=== PATIENT | female | born 1955 | race Caucasian/White ===

== ENCOUNTER → 2020-01-23 15:44 | Outpatient (CLI) | payer OTHER, SELFPAY ==
[2020-01-23 15:50] LABS: Adenovirus,PCR Not Detected (NotDetected); Coronavirus 229E Not Detected (NotDetected); Coronavirus NL63 Not Detected (NotDetected); Coronavirus OC43 Not Detected (NotDetected); Coronovirus HKU1,PCR Not Detected (NotDetected); Human Metapneumovirus Not Detected (NotDetected); Influenza A, PCR Not Detected (NotDetected); Influenza AH1, 2009 Not Detected (NotDetected); Influenza AH1, PCR Not Detected (NotDetected); Rhinovirus/Enterovirus Not Detected (NotDetected)
[2020-01-23 15:51] LABS: Bordetella Pertussis Not Detected (NotDetected); Chlamydophila Pneumoniae, PCR Not Detected (NotDetected); Influenza AH3,PCR Not Detected (NotDetected); Influenza B, PCR Not Detected (NotDetected); Mycoplasma Pneumoniae, PCR Not Detected (NotDetected); Parainfluenza 1, PCR Not Detected (NotDetected); Parainfluenza 2, PCR Not Detected (NotDetected); Parainfluenza 3, PCR Not Detected (NotDetected); Parainfluenza 4, PCR Not Detected (NotDetected); Respiratory Syncytial Virus Not Detected (NotDetected)
== END ==
PROVIDERS: Visit Provider Family Medicine
DX: R68.89 Other general symptoms and signs (principal)
CPT/HCPCS: 87275; 87276; 87486; 87581; 87633; 87798

== ENCOUNTER 2024-04-17 11:40 | Emergency (ER) | payer MEDICARE, SELFPAY ==
[2024-04-17] VITALS (9 sets, daily range): BP systolic 141–191; BP diastolic 64–91; PULSE 58–70; RESP 18; TEMP 36.6; O2SAT 90–93; BMI 22.8
--- NOTE | 2024-04-17 12:15 | CT_ITS ---
FINAL REPORT TECHNIQUE: After the administration of intravenous contrast, axial images were obtained through the abdomen and pelvis by computed tomography. The study was performed with techniques to keep radiation dose as low as reasonably achievable, (ALARA). Individual dose reduction techniques using automated exposure control or adjustment of mA and/or kV according to the patient's size were employed. CLINICAL HISTORY: Acute right lower quadrant abdominal pain, nausea and vomiting. COMPARISON: None. FINDINGS: Abdomen: The lung bases are clear. The liver has a nodular peripheral margin, consistent with cirrhosis. There are multiple gallstones in the gallbladder. There may be mild gallbladder wall thickening. The spleen is at the upper limits of normal in size. Pancreas and adrenal glands appear unremarkable. There is moderate left hydronephrosis. There is left hydroureter to the level of an obstructing stone. The aorta is normal in caliber. There is no free fluid or adenopathy. Pelvis: The appendix is not identified. Uterus is present and lies midline. Obstructing stone is at the UVJ and measures 4 mm. The urinary bladder is incompletely distended. There is no free fluid or adenopathy. IMPRESSION: 4 mm obstructing stone at the level of the left UVJ resulting in moderate left hydronephrosis and hydroureter. Gallstones in the gallbladder. Cirrhosis. Reviewed, Interpreted and Dictated by Joe Min MD Transcribed by Bianca Colon PA-C Authenticated and [facility]
--- NOTE | 2024-04-17 12:16 | ED_ITS ---
Discharge Plan Disposition Patient Disposition: Home, Self-Care Condition: Good Prescriptions Prescriptions: New oxycodone 5 mg tablet 5 mg PO Q8H PRN (Reason: pain) Qty: 12 0RF ondansetron HCl 4 mg tablet 4 mg PO Q8H PRN (Reason: nausea and vomiting) 4 Days Qty: 12 0RF tamsulosin [Flomax] 0.4 mg capsule 0.4 mg PO DAILY Qty: 10 0RF ketorolac 10 mg tablet 10 mg PO Q8H PRN (Reason: pain) Qty: 14 0RF Referrals Follow up/Referrals: Cadence Turner MD [Primary Care Provider] - See instructions Jw Martin [Referring] - See instructions Activity Restrictions/Add. Instructions Additional Instructions/Restrictions: You were evaluated in the emergency department today and diagnosed with a left kidney stone. Please use a strainer to strain your urine to see if you are able to catch the stone. Please follow-up outpatient with Dr. Jw Martin on 04/19 @ 230pm. Make sure that you drink plenty of water. technical support internship your prescriptions. Take them as needed. Be careful with taking oxycodone, as it can be sedating. Do not drive or operate heavy machinery while taking narcotic pain medication. You may also take Tylenol every 4-6 hours as needed for pain. Return to the emergency department for new or worsening symptoms, such as fever greater than 100.4 ?F, significant worsening in pain, intractable nausea and vomiting, or other concerns. Clinical Impressions Clinical Impression: Calculus of left ureter Instructions Patient Instructions: DI for Kidney Stones Discharge ED Provider: Abraham Cuellar General Adult HPI General Chief complaint: Abdominal Pain Stated complaint: vomiting, abd pain Time Seen by Provider: 04/17/24 11:58 Mode of Arrival: Ambulatory Source of Information: Patient and Spouse Limitations: No Limitations Description of Symptoms (Recalled from ER Triage Doc. by RN): Patient complaint of right lower abdomen pain that began last night and then this morning she began to have some vomiting. History of Present Illness HPI narrative: This patient is a 68-year-old female who denies significant past medical history presenting to the emergency department for evaluation with concern for lower abdominal pain, nausea, and vomiting. Her reports that she threw up many times this morning. The pain started last night in her right lower abdomen, but the vomiting started this morning. No fevers, changes in bowel movements, chest pain, shortness of breath, urinary symptoms, or other concerns. Patient denies any prior abdominal surgeries or issues. She does note that she has had some intermittent diarrhea and constipation in the past. Related Data Previous Rx's Medication Instructions Recorded ketorolac 10 mg tablet 10 mg PO Q8H PRN pain #14 tabs 04/17/24 ondansetron HCl 4 mg tablet 4 mg PO Q8H PRN nausea and 04/17/24 vomiting 4 days #12 tabs oxycodone 5 mg tablet 5 mg PO Q8H PRN pain #12 tabs 04/17/24 tamsulosin 0.4 mg capsule (Flomax) 0.4 mg PO DAILY #10 caps 04/17/24 Allergies Allergy/AdvReac Type Severity Reaction Status Date / Time No Known Allergies Allergy Verified 04/17/24 12:01 [facility] Disclaimer: The information contained in this section may have been updated after the patient was seen, as this information can be updated by other users. Social History Smoking Status: Never smoker alcohol intake: never current occupational status: retired Travel in the last 8 weeks: None ROS Obtained: Yes All systems reviewed & no additional complaints except as documented Physical Exam General General appearance: alert and in no apparent distress Head Head exam: atraumatic and normocephalic Eye Eye exam: Present normal appearance, PERRL and EOMI ENT ENT exam: Present normal exam, normal oropharynx, mucous membranes moist and normal external ear exam Neck Neck exam: Present normal inspection, full ROM and trachea midline; Absent tenderness Chest Chest inspection: Present normal inspection and symmetric chest wall rise; Absent tenderness Respiratory Respiratory exam: Present normal lung sounds bilaterally; Absent respiratory distress, wheezes, stridor or accessory muscle use Cardiovascular Cardiovascular exam: Present regular rate and normal rhythm Abdominal Exam Abdominal exam: Present soft, tenderness (Right lower quadrant) and normal bowel sounds; Absent distention, guarding, rebound or rigidity Extremities Exam Extremities exam: Present normal inspection, full ROM and normal capillary refill; Absent tenderness or edema Back Exam Back exam: Present normal inspection and full ROM; Absent tenderness Neurological Exam Neurological exam: Present alert, oriented X3, CN II-XII intact and normal gait; Absent motor sensory deficit Psychiatric Psychiatric exam: Present normal affect and normal mood Skin Skin exam: Present warm and dry Medical Decision Making Medical Records Medical records reviewed: Yes I reviewed the patient's medical records. Rebel Inquiry Pt receiving controlled substance: Yes Rebel was queried for this patient: Yes Risks and benefits of using a controlled substance: were discussed with pt by me Vital Signs: 04/17/24 11:42 04/17/24 12:00 04/17/24 12:30 Temperature 97.9 F Temperature Source Oral Pulse Rate 67 61 Pulse Rate [Radial] 68 Respiratory Rate 18 Blood Pressure 156/72 H 152/64 H Blood Pressure [Right Arm] 162/74 H Blood Pressure Mean Blood Pressure Mean [Right Arm] 103 Blood Pressure Source [Right Arm] Automatic Cuff Blood Pressure Position [Right Arm] Sitting 02 Sat by Pulse Oximetry 92 L 92 L 92 L Oxygen Delivery Method Room Air 04/17/24 13:30 04/17/24 14:00 04/17/24 14:30 Temperature Temperature Source Pulse Rate 70 69 61 Pulse Rate [Radial] Respiratory Rate Blood Pressure 191/91 H 189/84 H 157/77 H Blood Pressure [Right Arm] Blood Pressure Mean Blood Pressure Mean [Right Arm] Blood Pressure Source [Right Arm] Blood Pressure Position [Right Arm] 02 Sat by Pulse Oximetry 91 L 93 L 90 L Oxygen Delivery Method 04/17/24 15:00 04/17/24 15:30 04/17/24 15:35 Temperature 97.9 F Temperature Source Oral Pulse Rate 58 L 59 L 59 L Pulse Rate [Radial] Respiratory Rate 18 18 Blood Pressure 141/68 H 142/67 H 142/67 H Blood Pressure [Right Arm] Blood Pressure Mean 83 Blood Pressure Mean [Right Arm] Blood Pressure Source [Right Arm] Blood Pressure Position [Right Arm] 02 Sat by Pulse Oximetry 93 L 90 L Oxygen Delivery Method Room Air Lab Data Lab results reviewed: Yes I reviewed the patient's lab results. Lab Results 04/17/24 11:48: Urine Color Yellow, Urine Appearance Cloudy, Urine pH 6.0, Ur Specific Nettie >= 1.030, Urine Protein 1+, Urine Glucose (UA) Negative, Urine Ketones Negative, Urine Blood 3+, Urine Nitrate Negative, Urine Bilirubin Negative, Urine Urobilinogen 1.0, Ur Leukocyte Esterase Negative, Urine RBC 50- 100, Urine WBC 3-5, Ur Squamous Epith Cells 5-10, Urine Bacteria Trace, Urine Mucus Trace 04/17/24 12:10: WBC 7.9, RBC 4.32, Hgb 14.9, Hct 44.8, MCV 103.6 H, MCH 34.3 H, MCHC 33.2, RDW 13.5, Plt Count 147, MPV 8.5, Neut % (Auto) 77.3, Lymph % (Auto) 16.6, Aiken % (Auto) 5.1, Eos % (Auto) 0.4, Baso % (Auto) 0.7, Neut # (Auto) 6.1, Lymph # (Auto) 1.3, Aiken # (Auto) 0.4, Eos # (Auto) 0.0, Baso # (Auto) 0.1, Sodium 141, Potassium 3.7, Chloride 103, Carbon Dioxide 26, Anion Gap 15.7 H, BUN 13, Creatinine 1.00, Estimated Creat Clear 56, Estimated GFR 55 L, Est GFR ( Amer) 66, Glucose 139 H, Calcium 9.2, Total Bilirubin 1.2, AST 48 H, ALT 40, Alkaline Phosphatase 107, Total Protein 8.3 H, Albumin 4.3, Globulin 4.0 H, Albumin/Globulin Ratio 1.1, Lipase 39 04/17/24 12:10 04/17/24 12:10 Orders (Tests/Meds): ED MEDICATIONS Discontinued Medications Generic Name Dose Route Start Last Admin Trade Name Freq PRN Reason Stop Dose Admin Acetaminophen 1,000 mg 04/17/24 13:18 04/17/24 13:22 Acetaminophen 1,000mg/100ml Vial IV 04/17/24 13:19 1,000 mg ONCE ONE Administration Lactated Ringer's 1,000 mls @ 999 mls/hr 04/17/24 12:15 04/17/24 12:28 Lactated Ringer's 1000 Ml Bag IV 04/17/24 13:15 999 mls/hr .Q1H1M ONE Administration Iopamidol 75 ml 04/17/24 13:07 04/17/24 13:07 Iopamidol-370 (76%);100ml Bottle IV 04/17/24 13:08 75 ml ONCE ONE Administration Ketorolac Tromethamine 15 mg 04/17/24 13:18 04/17/24 13:22 Ketorolac 30mg/Ml Vial IV 04/17/24 13:19 15 mg ONCE ONE Administration Morphine Sulfate 4 mg 04/17/24 14:06 04/17/24 14:24 Morphine 4mg/Ml Syringe IV 04/17/24 14:07 4 mg ONCE ONE Administration Ondansetron HCl 4 mg 04/17/24 12:15 04/17/24 12:28 Ondansetron 4mg/2ml Vial IV 04/17/24 12:16 4 mg ONCE ONE Administration Sodium Chloride 10 ml 04/17/24 13:07 04/17/24 13:07 Sodium Chloride 0.9% 10ml Syr (Rad Only) IV 05/17/24 13:06 10 ml NEEDED PRN Administration Maintain IV Site Tamsulosin HCl 0.4 mg 04/17/24 14:42 04/17/24 14:52 Tamsulosin 0.4mg Capsule PO 04/17/24 14:43 0.4 mg ONCE ONE Administration ORDERS Category Date Time Status CT abdomen pelvis w con Stat Cat Scan 04/17/24 12:15 Taken CBC w/Auto Diff [Complete Blood Count Auto Diff] Stat Lab 04/17/24 12:10 Completed Comprehensive Metabolic Panel Stat Lab 04/17/24 12:10 Completed Lipase Stat Lab 04/17/24 12:10 Completed Urinalysis and Microscopic Stat Lab 04/17/24 11:48 Completed Medical Decision Narrative: In summary, this patient is a 68-year-old female presenting to the Emergency Department for evaluation of lower abdominal pain, nausea, and vomiting. Differential diagnoses considered include but are not limited to appendicitis, pyelonephritis, cystitis, ureterolithiasis, colitis, gastroenteritis. Ruling out the most morbid conditions drove assessment. On exam, the patient is resting comfortably in bed in no acute distress. She has right lower quadrant tenderness but no rebound or guarding. Workup included CBC, CMP, lipase, urinalysis, and CT abdomen pelvis with IV contrast. She was given a bolus of IV fluids as well as IV Zofran for symptomatic improvement. I independently interpreted CT scan prior to the radiologist read and noted left UVJ stone. Please see their read for final interpretation. Labs were obtained that demonstrated hematuria without other acutely concerning abnormalities. No significant leukocytosis, no leukocyturia, negative nitrates in the urine, and normal creatinine. On reassessment, patient had some improvement after administration of interventions above, but she still has pain. Given this, she is given IV morphine. I advised that I feel the patient would likely benefit from discharge home with trial of Flomax and passage of stone as well as close urology follow- up, and family requested that we help arrange urology follow-up given that we do not have urology here. I called and had an interactive discussion with Dr Jw Martin with [facility] who advised that the patient could be seen in clinic . We called the clinic and arranged appointment 04/19 for 2:30 PM. Family was notified of this, but they wanted another opinion just to make sure the patient was safe to go home. We called [facility] and spoke with Dr. Beltran who advised that he feels the patient also is appropriate for discharge with outpatient follow-up, and they can see her in 3 weeks. Family would like to proceed with evaluation by Dr. Martin on . Attempted to call [facility] who does not have urology on-call right now. At this time, patient was deemed to be appropriate for discharge home, as her pain is under control, she is tolerating oral intake, and workup is overall reassuring with no fever or concerns for infection. Patient was given prescriptions for oxycodone, Toradol, Flomax, and Zofran and was given very strict return precautions should she develop any infectious symptoms. Patient was discharged with plan for close follow-up on . Critical Care Critical Care Time Critical Care Time: No
[2024-04-17 12:23] LABS: Basophils # 0.1 K/mm3 (0-0.2); Basophils % 0.7 % (0.1-2.0); Eosinophils % 0.4 % (0.1-12.0); Hematocrit 44.8 % (37.0-47.0); Hemoglobin 14.9 g/dL (12.2-16.2); Lymphocytes # 1.3 K/mm3 (0.7-4.5); Lymphocytes % 16.6 % (10-50); Mean Corpuscular HGB Conc 33.2 g/dL (31.8-35.4); Mean Corpuscular Hemoglobin 34.3 pg (27.0-31.2); Mean Corpuscular Volume 103.6 fl (81-99); Mean Platelet Volume 8.5 fl (7.4-10.4); Monocytes # 0.4 K/mm3 (0.1-1.0); Monocytes % 5.1 % (1.7-9.3); Neutrophils # 6.1 K/mm3 (1.8-7.8); Neutrophils % 77.3 % (37.0-80.0); Platelet Count 147 K/mm3 (142-424); Red Blood Count 4.32 M/mm3 (4.20-5.40); Red Cell Distribution Width 13.5 % (11.5-17.5); White Blood Count 7.9 K/mm3 (4.8-10.8)
[2024-04-17] MEDS: ONDANSETRON 4MG/2ML VIAL 4 MG IV (12:28)
[2024-04-17] MEDS: LACTATED RINGERS 1000ML 1,000 ML 999 ML IV (12:28)
[2024-04-17 12:29] LABS: Microscopic, Urine URINE MICROSCOPIC (MICROSCOPIC)
[2024-04-17 12:29] LABS: Alanine Aminotransferase 40 U/L (12-78); Albumin Level 4.3 g/dl (3.5-5.0); Albumin/Globulin Ratio 1.1 (1.1-1.8); Alkaline Phosphatase 107 U/L (38-126); Anion Gap 15.7 mEq/L (5-15); Aspartate Amino Transferase 48 U/L (14-36); Bilirubin,Total 1.2 mg/dl (0.2-1.3); Blood Urea Nitrogen 13 mg/dl (7-17); Calcium 9.2 mg/dl (8.4-10.2); Carbon Dioxide 26 mmol/L (22.0-30.0); Chloride 103 mmol/L (98-107); Creatinine Clearance Estimated 56 mL/min (50-200); Estimated Glomerular Filt Rate 55 ml/min (>60); GFR (African American) 66 ML/MIN (>60); Glucose 139 mg/dl (74-100); Lipase 39 U/L (23-300); Potassium 3.7 mmoL/L (3.5-5.1); Sodium 141 mmol/L (136-145); Total Protein,Serum 8.3 g/dl (6.3-8.2)
[2024-04-17 12:34] LABS: Bilirubin,Urine Negative (Negative); Blood, Urine 3+ (Negative); Color,Urine YELLOW (Yellow); Glucose,Urine (UA) Negative (Negative); Ketones,Urine Negative (Negative); Leukocyte Esterase,Urine Negative (Negative); Nitrate,Urine Negative (Negative); Protein,Urine 1+ (Negative); Specific Gravity, Urine >= 1.030 (1.005-1.030)
[2024-04-17 12:40] LABS: Appearance,Urine Cloudy (Clear)
[2024-04-17 13:00] LABS: Bacteria,Urine Trace /lpf; RBC,Urine 50-100 #/hpf (0-3)
[2024-04-17 13:05] LABS: Mucus,Urine Trace /lpf
[2024-04-17] MEDS: SODIUM CHLORIDE 0.9% 10ML SYR (RAD ONLY) 10 ML IV (13:07)
[2024-04-17] MEDS: IOPAMIDOL-370 (76%);100ML BOTTLE 75 ML IV (13:07)
--- NOTE | 2024-04-17 13:08 | HMH.ITSTN ---
Patient started having left flank pain after contrast injection. I called nurse to patient room. I spoke with Nurse Alexandra Morales and told her of the patient new pain since injection.
[2024-04-17] MEDS: KETOROLAC 30MG/ML VIAL 15 MG IV (13:22)
[2024-04-17] MEDS: ACETAMINOPHEN 1,000MG/100ML VIAL 1000 MG IV (13:22)
--- NOTE | 2024-04-17 13:28 | PC.NURSE ---
PT MEDICATED PER EMAR. PT REQUESTS TO SPEAK TO MD, OFFERED TO ASSIST WITH ANY CONCERNS. STATES SHE JUST WANTS TO FEEL BETTER. CALL LIGHT WITHIN REACH, LIGHTS DIMMED.
--- NOTE | 2024-04-17 14:07 | PC.NURSE ---
calling Stacey at this time.
[2024-04-17] MEDS: MORPHINE 4MG/ML SYRINGE 4 MG IV (14:24)
--- NOTE | 2024-04-17 14:41 | PC.NURSE ---
speaking with Dr. Martin at [facility]
--- NOTE | 2024-04-17 14:48 | PC.NURSE ---
DR KEARNS AT BEDSIDE TO UPDATE PT AND FAMILY
[2024-04-17] MEDS: TAMSULOSIN 0.4MG CAPSULE 0.400000000000000022 MG PO (14:52)
--- NOTE | 2024-04-17 15:12 | PC.NURSE ---
o/p with [facility] at this time.
--- NOTE | 2024-04-17 15:20 | PC.NURSE ---
calling at this time.
--- NOTE | 2024-04-17 15:24 | PC.NURSE ---
calling [facility] at this time.
--- NOTE | 2024-04-17 15:32 | PC.NURSE ---
I called Dr. Jw Martin's office in [place], [place] (Formerly [facility]) and s/w his time study observer. They are able to work her in for a new pt appt on 04/19 @ 230pm.
--- NOTE | 2024-04-17 15:38 | PC.NURSE ---
o/p with at this time.
--- NOTE | 2024-04-17 15:42 | PC.NURSE ---
Asked radiology to power-share ct to [facility]
== END 2024-04-17 16:10 | disposition home or self-care (01) ==
PROVIDERS: Emergency Medicine; Emergency Provider Emergency Medicine; PCP Family Medicine
DX: N13.0 Hydronephrosis with ureteropelvic junction obstruction (principal); N13.4 Hydroureter; R10.30 Lower abdominal pain, unspecified; R11.2 Nausea with vomiting, unspecified
CPT/HCPCS: 74177; 80053; 81001; 83690; 85025; 96361; 96374; 96375; 99285; J0131; J2405; J7120; Q9967

== ENCOUNTER 2025-11-05 10:52 | Outpatient (CLI) | payer MEDICARE, SELFPAY ==
--- OUTSIDE RECORDS SUMMARY | 2025-08-09 07:00 | XMS_ITS | Encounter Summary ---
Author Organization [employer] ([place], [place], [place], [place], [place]) Address [address] [place] [address] Care Team Providers Care Electrolysis Needle Operator Name Role Phone Donald Turner MD Primary Care Provider [phone] Reason for Visit * Reason Comments Memory Loss Encounter Details Date Type Department Care Team (Late st Contact Info) Description 08/09/2025 8:00 AM EDT Office Visit [facility] Neurology - [facility] [address] [address] Familia Shell MD [facility] [address] [place] [address] Memory loss (Primary Dx); Dementia with psychosis (HCC); Irritability; B12 deficiency Social History Tobacco Use Types Packs/Day Years Used Date Smoking Tobacco: Never Smokeless Tobacco: Never Tobacco Cessation:Counseling Given: Not Answered Alcohol Use Standard Drinks/Week Comments Yes 4 (1 standard drink = 0.6 oz pur e alcohol) Family and Community Support Answer Phillip e Recorded Help with Day to Day Activities Not on file 04/17/2024 Feeling Lonely or Isolated Not on file 04/17 Educational Attainment Answer Date Alberto rded Speak language other than [place]ib[place]ian at home Not on file 04/17/2024 Want help with school or training Not on file 04/17/2024 Substance Use Answer Date Recorded Used prescription meds for non-medical reasons N ot on file 04/17/2024 Used illegal drugs past 12 months Not on file 04/17/2024 Comments Unknown Sex and Gender Information Value Date Recorded Sex Assigned at Not on file Legal Sex Female 2:22 PM CDT Gender Identity Not on file Sexual Orientation Not on file documented as of this encounter Last Filed Vital Signs Vital Sign Reading Time Taken Comments Blood Pressure 118/78 08/09/2025 7:59 AM EDT Pulse 48 08/09/2025 7:59 AM EDT Temperature - - Respiratory Rate - - Oxygen Saturation - - Inhaled Oxygen Concentration - - Weight 91.6 kg (202 lb) 08/09/2025 7:59 AM EDT Height - - Body Mass Index 28.98 08/02/2025 8:12 AM EDT documented in this encounter Progress Notes * Familia Shell MD - 08/09/2025 8:00 AM EDT [facility] Neurology [email or web address] [facility], [address] [place] [address] Ladi Martin [facility] [address] [address] 69 y.o. female Chief Complaint Patient presents with Memory Loss HPI: Ms. Ladi Martin was referred by Dr. Donald Turner 02/20/2025 for memory changes. She has a history of bladder leak, memory loss, hypertension. Her notes Dr. Turner feels she has dementia. She remembers what happened a long time ago but she has short term memory loss and she sleep a lot- she sleeps nonstop . He began noticing memory loss in 8060-8535 worsening in 2023. She has trouble remembering conversations, no problems with names. She still drives; she has forgotten where she chávez but no accidents and no getting lost. Her does most of the driving. She may repeat the same question. There is no family h/o Alzheimer's or dementia. Current medication: donepezil 10 mg QHS (02/20/2025); memantine 10 mg BID (started 05/29/2025); B12 500mcg daily; quetiapine 25 mg QHS (started 08/02/2025) Her notes she is worsening and is sometimes found screaming in the bathroom and says I'm happy . Ms. Martin was getting up during the night getting dressed and wanting to go . She sleeps all night now and she is less irritable but still screams occasionally. Her notes she thinks she's . She is hallucinating people are outside. She will have a CSF test this Tuesday and then follows up with Dr. Mckeon to determine if she is a candidate for the AD infusion therapy. She has urinary incontinence and has had periurethral bulking at [facility] 01/15/20[facility]. They see Dr. Cuong Martinez with Urology. Borderline low B12 Her level was 416 on 02/20/2025 so she was started 500 mcg daily. 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 Medications: Current Outpatient Medications Medication Sig Dispense Refill cyanocobalamin, vitamin B-12, [address] 500 mcg under the tongue daily. 90 tablet 1 donepeziL (ARICEPT) 10 MG tablet Take 1 tablet (10 mg total) by mouth nightly Start 1/2 tablet (5 mg) each night for 28 days and then one tablet (10 mg) each night. 90 tablet 1 memantine (NAMENDA) 10 MG tablet Take 1 tablet (10 mg total) by mouth 2 (two) times daily. 180 tablet 1 QUEtiapine (SEROquel) 25 MG tablet Take 12.5 mg (half tablet) at bedtime for two nights, and then 25 mg nightly. 90 tablet 0 No current facility-administered medications for this visit. Allergies: Patient has no known allergies. Past Medical History: Past Medical History: Diagnosis Date ADHD (attention deficit hyperactivity disorder) Anxiety Dementia (HCC) Depression Kidney stone Sinusitis Urinary tract infection Past Surgical History: No past surgical history on file. Family History: Family History Problem Relation Name Age of Onset Alcohol abuse Father Toni Farrell Social History: Social History Tobacco Use Smoking status: Never Smokeless tobacco: Never Substance Use Topics Alcohol use: Yes Alcohol/week: 4.0 standard drinks of alcohol Types: 4 Glasses of wine per week ROS: Review of Systems Respiratory: Negative for cough, shortness of breath and wheezing. Gastrointestinal: Negative for constipation, diarrhea, nausea and vomiting. Genitourinary: Negative for dysuria, frequency and urgency. The patient's medical history, surgical history, and social history were reviewed and updated as appropriate. Objective: Vital Signs: Vitals: 09/19/25 0759 BP: 118/78 Pulse: (!) 48 Weight: 91.6 kg (202 lb) BMI: Body mass index is 28.98 kg/m??. MMSE 23/30 02/20/2025. Mental Status: Alert. General Appearance: Cooperative. Not in acute distress. Build & Nutrition - Well nourished. HEENT: Eye Note: Pupils equal, reactive to light and to accommodation directly and consensually Peripheral Vascular: Upper Extremity: Inspection - Bilateral - Normal. Neurologic Mental Status: Speech - Normal. Cranial Nerves: III Oculomotor: Pupillary constriction - Bilateral - Normal. Note: no ptosis, no Melody's sign, no Young Pamela pupil VII Facial: Normal and symmetric facial muscles. Eye Movements: PERRL. EOMI. Sensory: Intact to pinprick in all 4 extremities. Reflexes: 2+ throughout. Musculoskeletal: Motor: Tone: Normal. Bulk: Normal. Strength: 5/5 bilaterally in the upper and lower extremities. Results: Review and summary of outside medical records 12/28/2024: Ms. Ladi Martin was referred by Dr. Donald Turner 12/28/2024 for memory changes. She has a history of bladder leak, memory loss, hypertension. She has no known drug allergies. Her medications include Macrobid and lisinopril. CT brain without contrast, [facility], 11/03/2024: The ventricles appear normal in caliber with no evidence of mass effect or midline shift. Subtle foci of periventricular and subcortical white matter hypodensities are nonspecific but likely the sequela of mild chronic small vessel ischemic disease. There is mild generalized parenchymal atrophy. Impression: No acute intracranial process identified. Findings suggestive of mild chronic small vessel ischemic disease. Mild mucosal disease within the sphenoid sinuses. These images were reviewed via PACS 11/12/2024. Chest x-ray, , 01/11/2025: Comparison none. No radiographic evidence of acute cardiopulmonary process. Labs, [facility], 02/20/2025: CMP normal. CBC normal except MCV 100. B12 416 (normal 232-1245). TSH 1.08. Neuropsychological Screening Evaluation, [facility], 02/27/2025: Ms. Martin's neurocognitive screeningprofile is consistent with significant deficits in global cognitive ability, learning, memory, and visual perception. Verbal fluency is borderline impaired. Despite less than optimal cognitive effort, it is suspected her memory loss is attributable to a neurodegenerative condition. Anxiety, depression, and sleep dysregulation are likely exacerbating variables. Considerations include repeating theexam in 1 year, psychopharmacological therapy to address mood related symptoms, memory enhancing medicine for protection and cognitive stability, and a referral to sleep medicine. Ms. Martin was seen by Dr. Emmett Mckeon 06/26/2025 for a second opinion concerning amyloid clearing medication. She will be referred for an MRI brain without contrast to assess for underlying microhemorrhages or T2 flair edema that would be contraindications for amyloid clearing medication; a p-tau 217 lab test will be drawn and if positive she will be referred for CSF studies. She will follow- up in 1 month. MRI brain without contrast, [facility], 07/23/2025: No evidence of acute intra-axial abnormality. Minimal mucoperiosteal thickening in ethmoid air cells and right maxillary sinus, consistent with minimal chronic sinusitis. These images were reviewed via PACS 08/09/2025. Ms. Martin was seen by Dr. Mckeon 08/02/2025 who noted her [id number] was normal but it was decided to proceed with CSF testing; her MRI brain was reviewed. Labs, [facility], 08/09/2025: B12 919. Lumbar puncture attempted at [facility] 08/12/2025 but patient refused. Ms. Martin was seen by Dr. Mckeon 09/11/2025 who noted she is on donepezil 10 mg, memantine 10 mg twice daily, and started on Rexulti by Dr. Gonzales. An MRI brain 07/23/2025 was reviewed. I referral was made for PET-amyloid because she elected to not have the CSF studies. Assessment: ICD-10-CM ICD-9-CM 1. Memory loss R41.3 780.93 2. Irritability R45.4 799.22 3. B12 deficiency E53.8 266.2 Plan: Nirali Bledsoe was seen today for memory loss. Diagnoses and all orders for this visit: Memory loss Irritability B12 deficiency Discussion: Ms. Ladi Martin was referred by Dr. Donald Turner 02/20/2025 for memory changes. She has a history of bladder leak, memory loss, hypertension. Ms. Martin most likely has dementia, possibly of the Alzheimer's type. A CT of the brain without contrast performed at [facility] 11/03/2024 showed no evidence of strokes other than chronic small vessel ischemic changes, and no evidence of normal pressure hydrocephalus. Her MMSE on 02/20/2025 was 23/30. Neuropsychological screening by [facility] 02/27/2025 showed deficits attributable to a neurodegenerative condition. Her B12 on 02/20/2025 was only 416. When seen 08/09/2025, it was noted Ms. Martin was seen by Dr. Mckeon 06/26/2025 and 08/02/2025; a p-tau 217 was normal but it was decided to proceed with CSF testing and an MRI brain was performed at [facility] 07/23/2025 showing no significant abnormalities. In the interim, she has had significant behavioral worsening at home therefore quetiapine was started and she takes 25 mg nightly. This has significantly improved the irritability and getting up at night but she still has hallucinations therefore the dose will be increased to 37.5 mg nightly. Donepezil was started 02/20/2025 and memantine was started 05/29/2025; she is on B12 500 mcg daily for a level of 416 on 02/20/2025 therefore level will be checked today. She will continue to be followed by Dr. Mckeon and she will be seen back in 2 months. Including assessment, discussion, and documentation, 30 minutes total time were spent on this appointment. Familia Shell MD 08/09/2025 MATION ENGINEERING MANAGER documented in this encounter Miscellaneous Notes * Addendum Note - Familia Shell MD - 08/09/2025 8:00 AM EDTAddended by: FAMILIA SHELL on: 08/09/2025 10:20 AM Modules accepted: Level of Service documented in this encounter Plan of Treatment Upcoming Encounters Date Type Department Care Team (Late st Contact Info) Description 11/08/2025 1:15 PM EST Office Visit [address] [place] [address] Familia Shell MD [address] [place] [address] [address] [place] [address] 12/03/2025 1:30 PM EST Office Visit [address] [place] [address] Emmett Mckeon MD [address] [place] [address] [address] [place] [address] 01/22/2026 9:30 AM EST Office Visit [address] [place] [address] Familia Shell MD [address] [place] [address] [address] [place] [address] documented as of this encounter Procedures Procedure Name Priority Date/Time Associated Diagnosis Comments VITAMIN B12 Routine 08/09/2025 8:48 AM EDT B12 deficiency documented in this encounter Results * Vitamin B12 (08/09/2025 8:48 AM EDT) Vitamin B12 919 232 - 1,245 pg/mL [facility] 08/09/2025 8:48 AM EDT 08/09/2025 Narrative [facility] - 08/10/2025 3:06 AM EDT Performed at: [address] [id number] It Help Desk Technician: Rubio Hernandez PhD, Phone: [phone] us Familia Shell MD LAB BLOOD ORDERABLES Final Res ult [facility] documented in this encounter Visit Diagnoses Diagnosis Memory loss- Primary Dementia with psychosis (HCC) Irritability B12 deficiency Memory loss- Primary Irritability B12 deficiency documented in this encounter Care Teams Electrolysis Needle Operator Relationship Specialty Start Date End Date Donald Turner MD [address] [place], [place] [id number] PCP - General Family Medicine 11/12/24 documented as of this encounter
--- OUTSIDE RECORDS SUMMARY | 2025-09-11 07:00 | XMS_ITS | Encounter Summary ---
Author Organization [employer] ([place], [place], [place], [place], [place]) Address [address] [place] [address] Care Team Providers Care Lung Puller Name Role Phone Donald Turner MD Primary Care Provider [phone] Reason for Referral * Other (Routine) - Closed Specialty Diagnoses / Procedures Referred By Contangeles t Referred To Contact Diagnoses Memory loss [facility] Emm[facility] Mckeon MD [facility] [address] [place] [address] Phone: tel: fax: Referral ID Status Reason Start Date Expiration Date Visits Re quested Visits Authorized [id number] Closed 09/18/2025 09/18/2026 1 1 Reason for Visit * Reason Comments Follow-up Encounter Details Date Type Department Care Team (Late st Contact Info) Description 09/11/2025 8:00 AM EDT Office Visit [facility] Neurology - [place] [facility] [address] [place] [id number] Emmett Mckeon MD [facility] [address] [place] [address] Memory loss (Primary Dx) Social History Tobacco Use Types Packs/Day Years Used Date Smoking Tobacco: Never Smokeless Tobacco: Never Alcohol Use Standard Drinks/Week Comments Yes 4 (1 standard drink = 0.6 oz pur e alcohol) Family and Community Support Answer Phillip e Recorded Help with Day to Day Activities Not on file 04/17/2024 Feeling Lonely or Isolated Not on file 04/17 Educational Attainment Answer Date Alberto rded Speak language other than [place] at home Not on file 04/17/2024 Want [...] Sign Reading Time Taken Comments Blood Pressure 153/64 09/11/2025 8:10 AM EDT Pulse 56 09/11/2025 8:10 AM EDT Temperature - - Respiratory Rate - - Oxygen Saturation 94% 09/11/2025 8:10 AM EDT Inhaled Oxygen Concentration - - Weight 94.3 kg (207 lb 12.8 oz) 09/11/2025 8:10 AM EDT Height 172.7 cm (5' 8 ) 09/11/2025 8:10 AM EDT Body Mass Index 31.6 09/11/2025 8:10 AM EDT documented in this encounter Progress Notes * Emmett Mckeon MD - 09/11/2025 8:00 AM EDT Neuro - Office Visit Date of Service: 09/11/2025 Subjective: Chief Complaint Patient presents with Follow-up Ladi Martin is a 69 y.o. female with history of memory deficits who returns to clinic for followup -last seen 08/02/2025. She is on donepezil 10 mg daily and memantine 10 mg BID. Recently started on Rexulti by Dr. Gonzales. P-tau 217 (06/2025): 0.08 (0-0.18) Pt was last seen by Dr. Shell on 05/29/2025. Per last clinic note: [facility] CT [facility] showed no evidence of strokes other than chronic small vessel ischemic changes, and no evidence of normal pressure hydrocephalus. Her MMSE on 02/20/2025 was 23/30. When seen 05/29/2025, it was noted neuropsychological screening by [facility] 02/27/2025 showed deficits attributable to a neurodegenerative condition. Her B12 on 2024 was only 416. Pt notes that memory deficits first noticed ~2022 . Forgetting events that occurred minutes/hours/day. Pt forgetting details of conversation and frequently repeating previously asked questions. Easily distracted. Endorses decline in ability to perform previously familiar tasks-now no longer cooking, baking or cleaning. is managing finances. Denies difficulty with bADLs ie self care tasks Centrally acting medication: None Anticoagulation: None Implantable devices: None Hx of malignancy: None FHx of dementia: None MRI brain dated 07/23/2025: 1. No evidence of acute intra-axial abnormality.2. Minimal mucoperiosteal thickening in ethmoid air cells and right maxillary sinus, consistent with minimal chronic sinusitis. I personally reviewed imaging- no evidence of T2 FLAIR edema or GRE sequence microhemorrhages. reports pt has ongoing visual hallucinations, paranoia and issues with insomnia. Pt was referred for CSF studies but she declined LP on the date of the appointment, due to concern for being an invasive procedure. Review of Systems Constitutional: Negative. Neurological: Negative. The patient's medical history, surgical history, and social history were reviewed and updated as appropriate. Objective: BP (!) 153/64 Pulse 56 Ht 1.727 m (5' 8 ) Wt 94.3 kg (207 lb 12.8 oz) SpO2 94% BMI 31.60 kg/m?? Mental Status - Alert. General Appearance - Cooperative. Not in acute distress. Build & Nutrition - Well nourished. HEENT - Eye Note: Pupils equal, reactive to light and to accommodation directly and consensually Peripheral Vascular - Upper Extremity: Inspection - Bilateral - Normal. Neurologic Mental Status: Speech - Normal. Cranial Nerves: III Oculomotor: Pupillary constriction - Bilateral - Normal. Note: no ptosis, no Melody's sign, no Young Pamela pupil VII Facial: - Normal and symmetric facial muscles. Eye Movements: - PERRL. EOMI. Sensory: Intact to light touch in all 4 extremities. Reflexes: 2+ throughout. Cerebellar: No ataxia or dysmetria on FTN Musculoskeletal: Motor: Tone: Normal. Bulk: Normal. Strength: 5/5 bilaterally in the upper and lower extremities. Gait: Normal Assessment: 1. Memory loss Plan: Diagnoses and all Orders for this Visit: 1. Memory loss [place] [facility] [place] Up: Return in about 6 weeks (around 10/23/2025). Discussion and Summary: I advised patient and that while the P tau 217 was normal, reported episodes of hallucinations, paranoia and an abnormal neuropsychology evaluation are suggestive of underlying neurodegenerative processes. Due to patient preference, electing not to have CSF studies, we will refer for PET-amyloid imaging. If PET imaging is positive we will refer patient for repeat genetic testing. Based on these results we will consider if patient is a candidate for new amyloid clearing medications such as lecanemab and donanemab. In the interim patient will continue memantine and donepezil. Follow up in clinic in 6 weeks. Pt understands they can call the clinic at anytime with questions. Time spent on the date of encounter: 30 minutes. Time includes time spent reviewing previous medical records, time spent [id number] with patient, counseling/education, putting in orders and electronic documentation. documented in this encounter Plan of Treatment Upcoming Encounters Date Type Department Care Team (Late st Contact Info) Description 11/08/2025 1:15 PM EST Office Visit [facility] Neurology [address] [phone] Stanford Shell MD [address] [place] [address] [address] [place] [address] 12/03/2025 1:30 PM EST Office Visit [facility] Neurology [address] [place] [address] Emmett Mckeon MD [address] [place] [address] [address] [place] [address] 01/22/2026 9:30 AM EST Office Visit [facility] Neurology [address] [place] [address] Stanford Shell MD [address] [facility] [address] [place] [address] Scheduled Orders Name Type Priority Associated Diagnoses Orde r Schedule EXTERNAL PROCEDURE - MISC Procedures Routine Memory loss Expected: 09/18/2025 (Approximate), Expires: 11/11/2025 documented as of this encounter Visit Diagnoses Diagnosis Memory loss- Primary Memory loss- Primary Irritability B12 deficiency documented in this encounter Care Teams Lung Puller Relationship Specialty Start Date End Date Donald Turner MD [address] [place] [address] PCP - General Family Medicine 11/12/24 documented as of this encounter
--- OUTSIDE RECORDS SUMMARY | 2025-11-05 11:07 | XMS_ITS | Clinical Summary ---
Author Organization [facility] Address [address] [place] [address] Care Team Providers Care Ob Gyn Physician Assistant Name Role Phone Donald Turner MD Primary Care Provider [phone] Social History Tobacco Use Types Packs/Day Years Used Date Smoking Tobacco: Never Assessed Comments Unknown Sex and Gender Information Value Date Recorded Sex Assigned at Not on file Legal Sex Female 10:37 AM EST Gender Identity Not on file Sexual Orientation Not on file Plan of Treatment Health Maintenance Due Date Last Done Comments ANNUAL WELLNESS VISIT 1955 DXA SCAN 1953 HEPATITIS C SCREENING 1953 TDAP/TD VACCINES (1 - Tdap) 1972 MAMMOGRAM 1993 COLOGUARD 1998 COLON CANCER SCREENING 5 YEA R SIGMOIDOSCOPY 1998 COLONOSCOPY 1998 COL[address]ECTAL CANCER SCREENING 1998 CT COLONOGRAPHY 1998 FECAL OCCULT BLOOD TEST 1998 FIT Testing (1 year) 1998 Pneumococcal Vaccine 50+ (1 of 1 - PCV) 2003 ZOSTER VACCINE (1 of 2) 2003 INFLUENZA VACCINE 06/21/2025 COVID-19 Vaccine ( season) 07/22/202501/2021, 01/29/2021 Insurance [facility] MEDICARE ADVANTAGE PPO Care Teams Ob Gyn Physician Assistant Relationship Specialty Start Date End Date Donald Turner MD [address] [place] [address] PCP - General Family Medicine 11/03/24
--- OUTSIDE RECORDS SUMMARY | 2025-11-05 11:07 | XMS_ITS | Clinical Summary ---
Author Organization [employer] ([place], [place], [place], [place], [place]) Address [address] [place] [address] Care Team Providers Care Pillowcase Sewer Name Role Phone Donald Turner MD Primary Care Provider [phone] Allergies No known active allergies Medications * This document contains information received from the source organization and may not represent a complete record from that organization. cyanocobalamin, vitamin B-12, 500 mcg TbDLIndications :B12 deficiency Place 500 mcg under the tongue daily. 90 tablet 1 5 Active donepeziL (ARICEPT) 10 MG tabletIndicatio ns:Memory loss Take 1 tablet (10 mg total) by mouth nightly Start 1/2 tablet (5 mg) each night for 28 days and then one tablet (10 mg) each night. 90 tablet 1 5 Active memantine (NAMENDA) 10 MG tabletIndicatio ns:Memory loss Take 1 tablet (10 mg total) by mouth 2 (two) times daily. 180 tablet 1 5 Active QUEtiapine (SEROquel) 25 MG tabletIndicatio ns:Irritability Take half a tablet (12.5 mg) at noon and 1.5 tablets at night (37.5 mg). 180 tablet 1 5 Active QUEtiapine (SEROquel) 25 MG tabletIndicatio ns:Irritability Take 1.5 tablets (37.5 mg total) by mouth nightly. 90 tablet 1 09/19/10/11/20 Discontinu ed(Reorder ) QUEtiapine (SEROquel) 25 MG tabletIndicatio ns:Irritability Take 1.5 tablets (37.5 mg total) by mouth nightly. 90 tablet 1 10/11/20 Discontinu ed(Reorder ) Active Problems Problem Noted Date Diagnosed Date Dementia with psychosis 08/09/2025 Irritability 05/29/2025 B12 deficiency 05/29/2025 Memory loss 02/20/2025 Encounters Date Type Department Care Team Description 09/11/2025 8:00 AM EDT Office Visit [facility] Neurology [address] [place] [address] [address] [place] [address] Emmett Mckeon MD Memory loss (Primary Dx) 09/11/2025 Travel 08/12/2025 9:00 AM EDT - 08/12/2025 11:59 PM EDT Hospital Encounter [facility] Diagnostic Imaging [address] [place] [address] Emmett Mckeon MD Memory loss Discharge Disposition: Home or Self Care 08/12/2025 Travel 08/09/2025 8:00 AM EDT Office Visit [facility] Neurology [address] [place] [address] [address] [place] [address] Stanford Shell MD Memory loss (Primary Dx); Dementia with psychosis (HCC); Irritability; B12 deficiency 08/09/2025 Travel from Last 3 Months Family History Medical History Relation Name Comments Alcohol abuse Father Toni Farrell Relation Name Status Comments Father Toni Farrell Alive Social History Tobacco Use Types Packs/Day Years [...] Date Alberto rded Speak language other than [place] Islander at home Not on file 04/17/2024 Want [...] on file Sexual Orientation Not on file Last Filed Vital Signs Vital Sign Reading Time Taken Comments Blood Pressure 153/64 09/11/2025 8:10 AM EDT Pulse 56 09/11/2025 8:10 AM EDT Temperature - - Respiratory Rate 18 08/12/2025 9:19 AM EDT Oxygen Saturation 94% 09/11/2025 8:10 AM EDT Inhaled Oxygen Concentration - - Weight 94.3 kg (207 lb 12.8 oz) 09/11/2025 8:10 AM EDT Height 172.7 cm (5' 8 ) 09/11/2025 8:10 AM EDT Body Mass Index 31.6 09/11/2025 8:10 AM EDT Plan of Treatment Upcoming Encounters Date Type Department Care Team (Late st Contact Info) Description 11/08/2025 1:15 PM EST Office Visit [facility] Neurology - [address] [address] Stanford Shell MD [address] [place] [address] [employer] [address] [place] [address] 12/03/2025 1:30 PM EST Office Visit [facility] Neurology [address] [place] [address] Emmett Mckeon MD [address] [place] [address] [employer] [address] [place] [address] 01/22/2026 9:30 AM EST Office Visit [facility] Neurology [address] [place] [address] Stanford Shell MD [address] [place] [address] Drive [address] [place] [address] Health Maintenance Due Date Last Done Comments CT Colonography 1955 Colonoscopy 1955 Colorectal Cancer Screening 1955 DXA SCAN 1955 FOBT/FIT 1953 Fit-DNA (Cologuard) 1955 Sigmoidoscopy 1953 Hepatitis C Screening 1971 DTAP/TDAP/TD VACCINES (1 - Tdap) 1972 Breast Cancer Screening 1993 Pneumococcal 50+ years (1 of 1 - PCV) 2003 Shingles Vaccine (Zoster) (1 of 2) 2003 Medicare Initial AWV [id number] 11/22/2024 COVID-19 VACCINE (3 - season) 07/22/202501/2021, 01/29/2021 Influenza Vaccine (#1) 2025 Tobacco Cessation Counseling and Screening (12+) 09/11/2026 09/11/2025 Respiratory Syncytial Virus (RSV) Adult or (1 - 1-dose 75+ series) 2028 Falls Risk Screening Completed 02/20/2025 Procedures Procedure Name Priority Date/Time Associated Diagnosis Comments FL LUMBAR PUNCTURE IMAGE-GUIDED Routine 08/12/2025 10:29 AM EDT Memory loss VITAMIN B12 Routine 08/09/2025 8:48 AM EDT B12 deficiency from Last 3 Months Results * FL lumbar puncture image-guided (08/12/2025 10:29 AM EDT) Anatomical Region Laterality Modality L-spine, T-spine, Abdomen, Pelvis X-Ray 08/12/2025 11:5 8 AM EDT Impressions 08/12/2025 2:11 PM EDT Attempted lumbar puncture under direct fluoroscopic guidance, as above. Incomplete exam due to patient refusal. Images reviewed, interpreted, and dictated by Dr. Abimael Cleveland. Transcribed by Angelica Epps PA-C. Narrative 08/12/2025 2:11 PM EDT LUMBAR PUNCTURE UNDER FLUOROSCOPY ATTENDING RADIOLOGIST: Dr. Cleveland. PHYSICIAN CONSUMER SAFETY OFFICER: Angelica Frankowski, PA-C. HISTORY: Memory loss. FLUORO TIME: 0.8 minutes. RADIATION DOSE: Reference air kerma 18 mGy. PROCEDURE: After informed consent was obtained and time-out procedure performed, the patient was placed in the prone position in the fluoroscopic suite. The L5-S1 level of the lumbar spine was localized under fluoroscopic guidance and marked on the skin appropriately. The patient was then prepped and draped in the usual sterile fashion and the skin was anesthetized with 1% lidocaine. A lumbar puncture was then attempted under direct fluoroscopic guidance at the L5-S1 level using a 20-gauge 3 1/2'' needle. Several attempts were made but the patient was uncomfortable and complained of low back pain despite lidocaine used. She became agitated and refused to continue with the exam. The ordering provider was made aware of these findings at the time of the exam. Procedure Note Abimael Cleveland MD - 08/12/2025 LUMBAR PUNCTURE UNDER FLUOROSCOPY ATTENDING RADIOLOGIST: Dr. Cleveland. PHYSICIAN CONSUMER SAFETY OFFICER: Angelica Melo PA-C. HISTORY: Memory loss. FLUORO TIME: 0.8 minutes. RADIATION DOSE: Reference air kerma 18 mGy. PROCEDURE: After informed consent was obtained and time-out procedure performed, the patient was placed in the prone position in the fluoroscopic suite. The L5-S1 level of the lumbar spine was localized under fluoroscopic guidance and marked on the skin appropriately. The patient was then prepped and draped in the usual sterile fashion and the skin was anesthetized with 1% lidocaine. A lumbar puncture was then attempted under direct fluoroscopic guidance at the L5-S1 level using a 20-gauge 3 1/2'' needle. Several attempts were made but the patient was uncomfortable and complained of low back pain despite lidocaine used. She became agitated and refused to continue with the exam. The ordering provider was made aware of these findings at the time of the exam. IMPRESSION: Attempted lumbar puncture under direct fluoroscopic guidance, as above. Incomplete exam due to patient refusal. Images reviewed, interpreted, and dictated by Dr. Abimael Cleveland. Transcribed by Angelica Epps PA-C. Emmett Mckeon MD IM FLUOROSCOPY ORDERABLES Final Result * Vitamin B12 (08/09/2025 8:48 AM EDT) Vitamin B12 919 232 - 1,245 pg/mL [facility] 08/09/2025 8:48 AM EDT 08/09/2025 Narrative [facility] - 08/10/2025 3:06 AM EDT Performed at: 01 - [facility] [address] [id number] Solder Sprayer: Rubio Hernandez PhD, Phone: [phone] us Stanford Shell MD LAB BLOOD ORDERABLES Final Res ult [facility] from Last 3 Months Insurance JACK ROSARIO [id number] [facility] MEDICARE PPO Care Teams Pillowcase Sewer Relationship Specialty Start Date End Date Donald Turner MD [address] [place] [address] PCP - General Family Medicine 11/12/24
--- OUTSIDE RECORDS SUMMARY | 2025-11-05 11:07 | XMS_ITS | Encounter Summary ---
Author Organization [employer] ([place], [place], [place], [place], [place]) Address [address] [place] [address] Care Team Providers Care Director Of Development Name Role Phone Donald Turner MD Primary Care Provider [phone] Encounter Details Date Type Department Care Team (Latest Contact Info) Description 09/11/2025 Travel Social History Tobacco Use Types Packs/Day Years [...] Date Alberto rded Speak language other than Tajik at home Not on file 04/17/2024 Want [...] on file documented as of this encounter Plan of Treatment Upcoming Encounters Date Type Department Care Team (Late Contact Info) Description 11/08/2025 1:15 PM EST Office Visit [facility] Neurology - [address] [address] Stanford Shell MD [address] [place] [address] [address] [place] [address] 12/03/2025 1:30 PM EST Office Visit [facility] Neurology - [facility] [address] [facility] [address] [place] [address] Emmett Mckeon MD [address] [place] [address] [address] [place] [address] 01/22/2026 9:30 AM EST Office Visit [facility] Neurology - [place] [address] [facility] [address] [place] [address] Stanford Shell MD [address] [place] [address] [address] [place] [address] documented as of this encounter Visit Diagnoses Not on filedocumented in this encounter Care Teams Director Of Development Relationship Specialty Start Date End Date Donald Turner MD [address] [place] [address] PCP - General Family Medicine 11/12/24 documented as of this encounter
--- OUTSIDE RECORDS SUMMARY | 2025-11-05 11:07 | XMS_ITS | Encounter Summary ---
Author Organization Healthcare Address [address] [id number] Care Team Providers Care Technical Applications Specialist Name Role Phone Donald Turner MD Primary Care Provider [phone] Encounter Details Date Type Department Care Team (Late st Contact Info) Description 01/11/2025 Outside Procedure External Location [address] [place] [address] Cristhian Schulz MD [address] [place] [address] Social History Tobacco Use Types Packs/Day Years Used Date Smoking Tobacco: Never Assessed PHQ-2 Answer Date Recorded Patient Health Questionnaire-2 Score 0 01/11/2025 PHQ-9 Answer Date Recorded Patient Health Questionnaire-9 Score 0 01/11/2025 Comments No Sex and Gender Information Value Date Recorded Sex Assigned at Not on file Legal Sex Female 7:30 PM EDT Gender Identity Not on file Sexual Orientation Not on file documented as of this encounter Functional Status * Over the past 2 weeks, how often have you been bothered by any of the following problems? Question Answer Date of Assessment Author Little interest or pleasure in doing things Not at all 01/11/2025 9:09 AM Te Oliver Feeling down, depressed, or hopeless Not at all 12/23 9:09 AM Te Oliver Patient Health Questionnaire-2 Score 0 12/23 9:09 AM Te Oliver * Question Answer Date of Assessment Author Trouble falling or staying a sleep, or sleeping too much Not at all 01/11/2025 9:09 AM Te Oliver Feeling tired or having little energy Not at all 9:09 AM Te Oliver Poor appetite or overeating Not at all 01/11/2025 9: 09 AM Te Oliver Feeling bad about yourself - or that you are a failure or have let yourself or your family down Not at all 01/11/2025 9:09 AM Cadence Oliver Trouble concentrating on thi ngs, such as reading the newspaper or watching television Not at all 01/11/2025 9:09 AM Te Oliver Moving or speaking so slowly that other people could have noticed. Or the opposite - being so fidgety or restless that you have been moving around a lot more than usual Not at all 01/11/2025 9:09 AM Cadence Oliver Thoughts that you would be b sanford off or hurting yourself in some way Not at all 01/11/2025 9:09 AM Te Oliver Patient Health Questionnaire-9 Score 0 12/23 9:09 AM Te Oliver * How difficult have these problems made it for you to do your work, take care of things at home, or get along with other people? Answer Date of Assessment Author Not difficult at all 01/11/2025 9:09 AM Te Harper documented as of this encounter Plan of Treatment Upcoming Encounters Date Type Department Care Team (Late st Contact Info) Description 11/27/2025 1:30 PM EST Appointment [facility] [address] [place] [address] 11/27/2025 2:30 PM EST Appointment [facility] [address] [place] [address] documented as of this encounter Procedures Procedure Name Priority Date/Time Associated Diagnosis Comments XR CHEST 2 VIEWS 01/11/2025 10:3 6 AM EST documented in this encounter Results * XR Chest 2 Views (01/11/2025 10:36 AM EST) Anatomical Region Laterality Modality Chest Digital Radiogra phy 01/11/2025 10:3 6 AM EST Narrative 01/11/2025 11:31 [place] [address] Name: LADI MARTIN Exam Date: 01/11/2025 : 1955 Age 69 years Gender: F Physician: CRISTHIAN SCHULZ Facility: [facility] Facility HSV: Outpatient Exam: CHEST 2 VIEWS Chest 2 views HISTORY: Preop . No additional history provided. COMPARISON: None. FINDINGS: Heart size normal. No infiltrate, effusion or edema. No pneumothorax. No plain film evidence to indicate interstitial disease. No focal or acute osseous abnormality. IMPRESSION: No radiographic evidence of acute cardiopulmonary process. Electronically signed by: Buddy Evans MD 01/11/2025 11:28 AM EST RP Dictated By: Buddy Evans Transcribed By: Transcribed On: 01/11/2025 11:04 AM Electronically signed by: Buddy Evans 01/11/2025 Thank you for referring LADI MARTIN to [facility]. Legally authenticated by KING BUDDY 2025-01-11 11:04:04 Procedure Note Provider, [facility] - 01/11/2025 [place] [address] Name: LADI MARTIN Exam Date: 01/11/2025 : 1955 Age 69 years Gender: F Physician: CRISTHIAN SCHULZ Facility: [facility] HSV: Outpatient Exam: CHEST 2 VIEWS Chest 2 views HISTORY: Preop . No additional history provided. COMPARISON: None. FINDINGS: Heart size normal. No infiltrate, effusion or edema. No pneumothorax. No plain film evidence to indicate interstitial disease. No focal or acute osseous abnormality. IMPRESSION: No radiographic evidence of acute cardiopulmonary process. Electronically signed by: Buddy Evans MD 01/11/2025 11:28 AM EST RP Dictated By: Buddy Evans Transcribed By: Transcribed On: 01/11/2025 11:04 AM Electronically signed by: Buddy Evans 01/11/2025 Thank you for referring LADI MARTIN to [facility]. Legally authenticated by KING BUDDY 2025-01-11 11:04:04 us Cristhian Schulz MD IMG XR PROCEDURES Final Result documented in this encounter Visit Diagnoses Not on filedocumented in this encounter Additional Health Concerns Assessment Noted Time PHQ-9 Depression Total Score: 0 01/11/20 9:09 AM EST A fall risk assessment has been complete d for the patient 01/11/2025 9:07 AM EST A Body Mass Index follow-up plan has been documented for the patient 01/11/2025 9:22 AM EST documented as of this encounter Care Teams Technical Applications Specialist Relationship Specialty Start Date End Date Donald Turner MD [address] [place] [address] PCP - General 11/30/24 documented as of this encounter
--- OUTSIDE RECORDS SUMMARY | 2025-11-05 11:07 | XMS_ITS | Clinical Summary ---
Author Organization [facility] Address [address] [id number] Care Team Providers Care Piping Manager Name Role Phone Donald Turner MD Primary Care Provider [phone] Allergies No known active allergies Medications estradiol (Estrace) 0.1 MG/GM vaginal cream Insert 2 g into the vagina 2 (two) times a week. 42.5 g 3 12/03/2024 Active Encounters Date Type Department Care Team Description 09/12/2025 Orders Only Radiology Virtual Dept. [address] [place] [address] Brayan Walton MD from Last 3 Months Social History Tobacco Use Types Packs/Day Years Used Date Smoking Tobacco: Never Assessed PHQ-2 Answer Date Recorded Patient Health Questionnaire-2 Score 0 01/30/2025 PHQ-9 Answer Date Recorded Patient Health Questionnaire-9 Score 0 01/21/2025 Comments No Sex and Gender Information Value Date Recorded Sex Assigned at Not on file Legal Sex Female 7:30 PM EDT Gender Identity Not on file Sexual Orientation Not on file Last Filed Vital Signs Vital Sign Reading Time Taken Comments Blood Pressure 159/84 02/22/2025 9:00 AM EDT Pulse 73 02/22/2025 9:00 AM EDT Temperature 36.6 C (97.9 F) 02/22/2025 9:00 AM EDT Respiratory Rate 20 01/21/2025 3:48 PM EST Oxygen Saturation 93% 02/22/2025 9:00 AM EDT Inhaled Oxygen Concentration - - Weight 102 kg (223 lb 15.8 oz) 02/22/2025 9:00 A M EDT Height 170.2 cm (5' 7 ) 02/22/2025 9:00 AM EDT Body Mass Index 35.08 02/22/2025 9:00 AM EDT Plan of Treatment Upcoming Encounters Date Type Department Care Team (Late st Contact Info) Description 11/27/2025 1:30 PM EST Appointment [facility] [address] [facility], [place] [address] 11/27/2025 2:30 PM EST Appointment [facility] [address] [facility], [place] [address] Health Maintenance Due Date Last Done Comments [facility]-Bone Density Scan 1955 [facility]-Hepatitis C Screening 1955 [facility]-Medicare Annual Wellness (AWV) 1955 [facility]-Infant/Child/Adol SDOH Screenings 1955 [facility]- SDOH Screenings 1971 [facility]-Adult SDOH Screenings 1971 [facility]-DTaP,Tdap,and Td Vaccines (1 - Tdap) 1972 CT Colonography 1998 Colonoscopy 1998 FIT-DNA 1998 FIT 1998 FOBT 1998 Sigmoidoscopy 1998 [facility]-Colorectal Cancer Screening 1998 [facility]-Breast Cancer Screening 2003 [facility]-Pneumococcal Vaccine: 50+ Years (1 of 1 - PCV) 2003 [facility]-Zoster Vaccines (1 of 2) 2003 [id number] Vaccine (3 - season) 2025 02/21/2021, 01/29/2021 [facility]-Influenza Vaccine (#1) 2025 [facility]-Depression Screening 01/30/2026 01/30/2025, 0301/2025 [facility]-RSV Vaccine: 60+ Years or (1 - 1-dose 75+ series) 2028 [facility]-Obesity Intervention Completed 025, 01/30/2025, 01/21/2025, Additional history exists HPV Vaccines (No Doses Required) Completed [facility]-HIB Vaccines Aged Out No longer e ligible based on patient's age to complete this topic [facility]-Hepatitis A Vaccines Aged Out No longer eligible based on patient's age to complete this topic [facility]-IPV Vaccines Aged Out No longer e ligible based on patient's age to complete this topic [facility]-Rotavirus Vaccines Aged Out No lo nger eligible based on patient's age to complete this topic Insurance [facility] MEDICARE Care Teams Piping Manager Relationship Specialty Start Date End Date Donald Turner MD [address] [place] [address] PCP - General 11/30/24
--- OUTSIDE RECORDS SUMMARY | 2025-11-05 11:07 | XMS_ITS | Referral Summary ---
Author Organization [employer] ([place], [place], [place], [place], [place]) Address [address] [place] [address] Care Team Providers Care Director Of Infection Prevention Name Role Phone Donald Turner MD Primary Care Provider [phone] Encounters Date Type Department Care Team Description 09/11/2025 Travel 09/11/2025 8:00 AM EDT Office Visit [facility] Neurology [address] [address] Emmett Mckeon MD Memory loss (Primary Dx) 08/12/2025 Travel 08/12/2025 9:00 AM EDT - 08/12/2025 11:59 PM EDT Hospital Encounter [facility] Diagnostic Imaging [address] [place] [address] Emmett Mckeon MD Memory loss Discharge Disposition: Home or Self Care 08/09/2025 Travel 08/09/2025 8:00 AM EDT Office Visit [facility] Neurology [address] [address] Stanford Shell MD Memory loss (Primary Dx); Dementia with psychosis (HCC); Irritability; B12 deficiency from Last 3 Months Allergies No known active allergies Medications * [...] total) by mouth nightly. 90 tablet 1 5 10/11/20 25 Discontinu ed(Reorder ) QUEtiapine (SEROquel) 25 MG tabletIndicatio ns:Irritability Take 1.5 tablets (37.5 mg total) by mouth nightly. 90 tablet 1 5 10/11/20 25 Discontinu ed(Reorder ) Active Problems Problem Noted Date Diagnosed Date Dementia with psychosis 08/09/2025 Irritability 05/29/2025 B12 deficiency 05/29/2025 Memory loss 02/20/2025 Social History Tobacco Use Types Packs/Day Years [...] Date Alberto rded Speak language other than Dominican at home Not on file 04/17/2024 Want [...] Description 11/08/2025 1:15 PM EST Office Visit [facility] Neurology [address] [address] Stanford Shell MD [address] [place] [address] [employer] [address] [place] [address] 12/03/2025 1:30 PM EST Office Visit [address] [place] [address] Emmett Mckeon MD [address] [place] [address] [address] [place] [address] 01/22/2026 9:30 AM EST Office Visit [address] [place] [address] Stanford Shell MD [address] [place] [address] [address] [place] [address] Procedures Procedure Name Priority Date/Time Associated Diagnosis [...] UNDER FLUOROSCOPY ATTENDING RADIOLOGIST: Dr. Cleveland. PHYSICIAN INSTRUMENT REPAIR SUPERVISOR: Angelica Melo PA-C. HISTORY: Memory loss. FLUORO [...] UNDER FLUOROSCOPY ATTENDING RADIOLOGIST: Dr. Cleveland. PHYSICIAN INSTRUMENT REPAIR SUPERVISOR: Angelica Melo PA-C. HISTORY: Memory loss. FLUORO [...] by Angelica Epps PA-C. Emmett Mckeon MD IMG FLUOROSCOPY ORDERABLES Final Result * Vitamin B12 (08/09/2025 8:48 AM EDT) [facility] Vitamin B12 919 232 - 1,245 pg/mL [facility] 08/09/2025 8:48 AM EDT 08/09/2025 Narrative [facility] - 08/10/2025 3:06 AM EDT Performed at: [facility] [id number] Funding Specialist: Rubio Hernandez PhD, Phone: [phone] Stanford Shell MD LAB BLOOD ORDERABLES Final Res ult [facility] from Last 3 Months Insurance [facility] MEDIC[facility] PPO Care Teams Director Of Infection Prevention Relationship Specialty Start Date End Date Donald Turner MD [address] [place] [address] PCP - General Family Medicine 11/12/24
--- OUTSIDE RECORDS SUMMARY | 2025-11-05 11:08 | XMS_ITS | Encounter Summary ---
Author Organization [facility] Address [address] [place] [address] Care Team Providers Care Legal Internship Name Role Phone Donald Turner MD Primary Care Provider [phone] Encounter Details Date Type Department Care Team ([facility] Contact Info) Description 09/12/2025 Orders Only [facility] Radiology Virtual Dept. [address] [place] [address] Brayan Walton MD [address] [place] [address] Social History Tobacco Use Types Packs/Day Years [...] Upcoming Encounters Date Type Department Care Team ([facility] Contact Info) Description 11/27/2025 1:30 PM EST Appointment [facility] [address] [place] [address] 11/27/2025 2:30 PM EST Appointment [facility] [address] [place] [address] documented as of this encounter Visit Diagnoses Not on filedocumented in this encounter Additional Health Concerns Assessment Noted Time PHQ-9 Depression Total Score: 0 01/22/20 25 3:51 PM EST A fall risk assessment has been complete d for the patient 02/22/2025 9:01 AM EDT A Body Mass Index follow-up plan has been documented for the patient 02/22/2025 9:34 AM EDT documented as of this encounter Care Teams Legal Internship Relationship Specialty Start Date End Date Donald Turner MD [address] [place] [address] PCP - General 11/30/24 documented as of this encounter
== END 2025-11-05 23:59 | disposition home or self-care (01) ==
LOC: LAB 10:52
PROVIDERS: PCP Family Medicine; Visit Provider Family Medicine
DX: R19.7 Diarrhea, unspecified (principal)
CPT/HCPCS: 87045